=== PATIENT | male | born 1990 | race Two or more races ===

== ENCOUNTER 2018-03-09 16:01 | Emergency (ER) | payer MEDICAID ==
[~2018-03-09] VITALS: Ht 165.1 cm; Wt 49.9 kg
[2018-03-09] MEDS ORDERED: IBUPROFEN 600 MG TABLET ONE (16:28)
[2018-03-09] MEDS ORDERED: IBUPROFEN 600 MG TABLET PO ONE (16:30)
--- NOTE | 2018-03-09 16:30 | NUR ---
Patient discharged to home in stable conditon. Written and verbal after care instructions given. Patient verbalizes understanding of instructions.pt walks in steady gait.
== END 2018-03-09 16:32 | disposition home or self-care (01) ==
LOC: ER 16:04
DX: R07.89 Other chest pain (principal)
CPT/HCPCS: 93005; 99283; A4663

== ENCOUNTER 2018-04-25 16:20 | Emergency (ER) | payer MEDICAID ==
[~2018-04-25] VITALS: Ht 167.6 cm; Wt 56.7 kg
--- NOTE | 2018-04-25 17:10 | NUR ---
at bedside to examine patient.
--- NOTE | 2018-04-25 17:45 | NUR ---
DCD instructions and prescriptions given to pt. who verbalized understanding.
== END 2018-04-25 17:46 | disposition home or self-care (01) ==
LOC: ER 16:22
DX: R07.89 Other chest pain (principal); J45.909 Unspecified asthma, uncomplicated
CPT/HCPCS: A4663